=== PATIENT | female | born 1950 | race Caucasian/White ===

== ENCOUNTER 2019-01-12 17:18 | Emergency (ER) | payer OTHER ==
[2019-01-12 17:47] LABS: Blood, Urine Negative (Negative); Protein, Urine (Dipstick) 30 mg/dL (Neg-Trace)
[2019-01-12 17:48] LABS: Clarity Clear (Clear); Glucose, Urine (Dipstick) Unable to Interpret mg/dL (Negative); Leukocyte Trace Leu/uL (Negative); Nitrite Unable to Interpret (Negative)
[2019-01-12 17:49] LABS: Bilirubin Unable to Interpret (Negative); Urobilinogen UNABLE TO INTERPRET mg/dL (Less than 2)
[2019-01-12 17:50] LABS: Pregnancy Test - Urine (BHCG) Negative (Negative); Pregu Control Background? CLEAR/WHITE (CLR/WHITE); Pregu Control Bar Appear? YES (CONTROL BAR); Specific Gravity 1.024 (1.002-1.036)
[2019-01-12 17:59] LABS: Bacteria/HPF None Seen HPF (None Seen); RBC/HPF 0-3 HPF (0-3); WBC/HPF 0-3 HPF (0-3)
[2019-01-12 18:00] LABS: Calcium Oxalate Crystals Rare HPF (None Seen)
== END 2019-01-12 18:31 | disposition home or self-care (01) ==
LOC: ERS 17:18
DX: N39.0 Urinary tract infection, site not specified (principal); M19.90 Unspecified osteoarthritis, unspecified site; Z79.899 Other long term (current) drug therapy
CPT/HCPCS: 81003; 81015; 81025; 99283

== ENCOUNTER 2022-05-19 05:34 | Inpatient (IN) | payer OTHER ==
[2022-05-19 06:08] LABS: #Eosinphils 0.1 thou/uL (0.0-0.7); #Lymphocytes 0.4 thou/uL (1.20-3.40); #Monocytes 0.2 thou/uL (0.11-0.59); #Neutrophils 2.3 thou/uL (1.40-6.50); %Eosinophils 2.4 % (0.0-10.0); %Lymphocytes 14.3 % (21.0-51.0); %Neutrophils 76.3 % (42.0-75.0); Hemoglobin 14.2 g/dL (12.0-16.0); Mean Corpuscular HGB CONC 32.4 g/dL (32.0-36.0); Mean Corpuscular Hemoglobin 32.9 pg (27.0-31.0); Mean Platelet Volume 7.5 fL (7.4-10.4); Platelet Count 282 10x3/uL (130-400); RBC Distribution Width 13.7 % (11.5-14.5); Red Blood Cell (RBC) Count 4.31 mill/uL (4.20-5.40)
[2022-05-19] MEDS ORDERED: FENTANYL 50 MCG/ML 1 ML VIAL ONE ×4 (06:08→11:53)
[2022-05-19] MEDS ORDERED: Piperacillin/Tazobactam 3.375 GM VIAL ONE (06:08)
[2022-05-19] MEDS ORDERED: Vancomycin 1 GM/200 ML (FROZEN) BAG ONE (06:08)
[2022-05-19 06:19] LABS: INR-International Normal Ratio 0.9; Prothrombin Time 12.9 sec (12.0-14.7)
[2022-05-19 06:20] LABS: PTT 26.4 sec (22.9-36.1)
[2022-05-19] MEDS ORDERED: HYDROmorphone 0.5 MG/0.5 ML SYRINGE ONE (06:51)
[2022-05-19 07:03] LABS: ALT (SGPT) 17 U/L (8-55); AST (SGOT) 25 U/L (5-34); Alkaline Phosphatase 80 U/L (40-110); Anion Gap 14 mmol/L (10-20); BUN (Urea Nitrogen) 25 mg/dL (9.8-20.1); Bilirubin, Total 0.6 mg/dL (0.2-1.2); Calc. Creatinine Clearance 0 mL/min (70-130); Calcium 9.5 mg/dL (7.8-10.44); Carbon Dioxide 22 mmol/L (23-31); Chloride 103 mmol/L (98-107); Estimated GFR 64; Globulin 2.3 g/dL (2.4-3.5); Glucose 157 mg/dL (83-110); Lipase 163 U/L (8-78); Potassium 3.9 mmol/L (3.5-5.1); Protein, Total 5.3 g/dL (5.8-8.1); Sodium 135 mmol/L (136-145)
[2022-05-19 08:27] LABS: SARS-CoV-2 NAA Rapid Test Not Detected (NotDetected)
[2022-05-19] MEDS ORDERED: Promethazine HCl 25 MG/ML VIAL IVPB PRN (09:24)
[2022-05-19] MEDS ORDERED: Ondansetron HCl/PF 4 MG/2 ML Vial IVP PRN (09:24)
[2022-05-19] MEDS ORDERED: Promethazine HCl 25 MG/ML VIAL IM PRN ×3 (09:24→12:06)
[2022-05-19] MEDS ORDERED: Fentanyl 250 MCG/5 ML VIAL ONE (09:34)
[2022-05-19] MEDS ORDERED: SUGAMMADEX SODIUM 200 MG/2 ML VIAL ONE (09:35)
[2022-05-19] MEDS ORDERED: PROPOFOL 200 MG/20 ML VIAL ONE (10:00)
[2022-05-19] MEDS ORDERED: Dexamethasone 20 MG/5 ML VIAL ONE (10:00)
[2022-05-19] MEDS ORDERED: NEOSTIGMINE 3 MG/3 ML SYR 3 MG/3 ML SYRINGE ONE (10:00)
[2022-05-19] MEDS ORDERED: Phenylephrine 10 MG/ML VIAL ONE (10:00)
[2022-05-19] MEDS ORDERED: ePHEDrine 50 MG/ML VIAL ONE (10:00)
[2022-05-19] MEDS ORDERED: Succinylcholine Chloride 100 MG/5 ML SYRINGE FS ONE (10:00)
[2022-05-19] MEDS ORDERED: Rocuronium Bromide 10 MG/ML (10ML VIAL) ONE (10:00)
[2022-05-19] MEDS ORDERED: GLYCOPYRROLATE/PF 0.2 MG/ML VIAL ONE (10:00)
[2022-05-19] MEDS ORDERED: Albumin 5% 250 ML ONE (10:09)
[2022-05-19] MEDS ORDERED: FENTANYL 500 MCG/10 ML VIAL 2,000 MCG in Sodium Chloride 0.9% 60 ML IV PRN (11:15)
[2022-05-19] MEDS ORDERED: Zolpidem Tartrate 5 MG TAB PO PRN (11:15)
[2022-05-19] MEDS ORDERED: Ondansetron PF 4 MG/2 ML Vial IVP PRN (11:15)
[2022-05-19] MEDS ORDERED: diphenhydrAMINE 25 MG CAP PO PRN (11:15)
[2022-05-19] MEDS ORDERED: PCA Communication Order-Pharmacy FS SCH (11:15)
[2022-05-19] MEDS ORDERED: diphenhydrAMINE 50 MG/ML VIAL IVP PRN (11:15)
[2022-05-19] MEDS ORDERED: Naloxone HCl 0.4 mg/ml Vial IV PRN (11:15)
[2022-05-19] MEDS ORDERED: diphenhydrAMINE 50 MG/ML VIAL IM PRN (11:15)
[2022-05-19] MEDS ORDERED: Dextrose 5% in Water 1,000 ML IV PRN (12:06)
[2022-05-19] MEDS ORDERED: Piperacillin/Tazobactam 3.375 GM in Sodium Chloride 0.9% 100 ML IVPB SCH (12:06)
[2022-05-19] MEDS ORDERED: Dextrose 50% Abboject 50 ML SYRINGE SLOW IVP PRN (12:06)
[2022-05-19] MEDS: D5 1/2 NS w/20 mEq KCL 1,000 ML IV SCH ×2 (14:05→20:39)
[2022-05-19] MEDS: Fluconazole In NaCl,Iso-Osm 200 MG in Premix Bag 1 BAG IVPB SCH (14:05)
[2022-05-19 14:08] VITALS: BMI 17.4
[2022-05-19] MEDS ORDERED: Iopamidol-370 76% 500 ML 1 ML ONE (15:00)
[2022-05-19] MEDS: Piperacillin/Tazobactam 3.375 GM in Sodium Chloride 0.9% 100 ML IVPB SCH ×2 (15:06→21:34)
[2022-05-19] MEDS ORDERED: Sodium Chloride 0.9% 1,000 ML IV SCH (19:00)
[2022-05-19] MEDS: Pantoprazole 40 MG VIAL IVP SCH (20:39)
[2022-05-20] MEDS: Piperacillin/Tazobactam 3.375 GM in Sodium Chloride 0.9% 100 ML IVPB SCH ×3 (05:24→21:24)
[2022-05-20] MEDS: D5 1/2 NS w/20 mEq KCL 1,000 ML IV SCH (05:24)
[2022-05-20] MEDS: Pantoprazole 40 MG VIAL IVP SCH ×2 (09:15→21:25)
[2022-05-20] MEDS: Enoxaparin Sodium 30 MG/0.3 ML SYRINGE SC SCH (09:15)
[2022-05-20 09:50] LABS: Anion Gap 10 mmol/L (10-20); BUN (Urea Nitrogen) 26 mg/dL (9.8-20.1); Calc. Creatinine Clearance 30 mL/min (70-130); Calcium 9.3 mg/dL (7.8-10.44); Carbon Dioxide 19 mmol/L (23-31); Chloride 111 mmol/L (98-107); Estimated GFR 54; Glucose 83 mg/dL (83-110); Potassium 5.2 mmol/L (3.5-5.1); Sodium 135 mmol/L (136-145)
[2022-05-20 10:52] LABS: Hemoglobin 10.6 g/dL (12.0-16.0); Mean Corpuscular Hemoglobin 33.8 pg (27.0-31.0); Red Blood Cell (RBC) Count 3.14 mill/uL (4.20-5.40); White Blood Cell (WBC) Count 10.3 10x3/uL (4.8-10.8)
[2022-05-20 11:28] LABS: Band 40 % (5-11); Burr Cells SLIGHT = 2-5 cells (100X) (0-1/hpf); Lymphocytes 9 % (21-51); MDiff Complete? YES; Macrocytosis MODERATE=16-30 cells (100X) (0-5/hpf); Mean Corpuscular HGB CONC 32.2 g/dL (32.0-36.0); Mean Platelet Volume 7.6 fL (7.4-10.4); Metamyelocyte 1 % (0-0); Monocytes 7 % (0-10); Neutrophil 43 % (42-75); Ovalocytes SLIGHT = 2-5 cells (100X) (0-1/hpf); Platelet Count 210 10x3/uL (130-400); Platelet Morphology Comment Appears Adequate; RBC Distribution Width 13.9 % (11.5-14.5); Toxic Granulation SLIGHT; Vacuoles SLIGHT
[2022-05-20] MEDS ORDERED: Sodium Chloride 0.9% 1,000 ML IV SCH (12:15)
[2022-05-20] MEDS ORDERED: Lactated Ringer's 1,000 ML IV SCH (13:30)
[2022-05-20] MEDS: Fluconazole In NaCl,Iso-Osm 200 MG in Premix Bag 1 BAG IVPB SCH (14:53)
[2022-05-20] MEDS: Dextrose 5 %-0.45 % NaCl 1,000 ML IV SCH (21:26)
[2022-05-21] MEDS: Piperacillin/Tazobactam 3.375 GM in Sodium Chloride 0.9% 100 ML IVPB SCH ×3 (04:58→22:53)
[2022-05-21 06:00] LABS: #Lymphocytes 0.4 thou/uL (1.20-3.40); #Monocytes 0.5 thou/uL (0.11-0.59); #Neutrophils 10.2 thou/uL (1.40-6.50); %Basophils 0.1 % (0.0-1.0); %Eosinophils 0.3 % (0.0-10.0); %Lymphocytes 3.8 % (21.0-51.0); %Monocytes 4.3 % (0.0-10.0); %Neutrophils 91.5 % (42.0-75.0); Hemoglobin 10.9 g/dL (12.0-16.0); Mean Corpuscular Hemoglobin 33.4 pg (27.0-31.0); Mean Platelet Volume 7.6 fL (7.4-10.4); Platelet Count 220 10x3/uL (130-400); RBC Distribution Width 13.5 % (11.5-14.5); Red Blood Cell (RBC) Count 3.25 mill/uL (4.20-5.40); White Blood Cell (WBC) Count 11.1 10x3/uL (4.8-10.8)
[2022-05-21 06:26] LABS: Anion Gap 11 mmol/L (10-20); Calc. Creatinine Clearance 42 mL/min (70-130); Calcium 9.8 mg/dL (7.8-10.44); Carbon Dioxide 19 mmol/L (23-31); Chloride 112 mmol/L (98-107); Estimated GFR 80; Glucose 79 mg/dL (83-110); Potassium 4.5 mmol/L (3.5-5.1); Sodium 137 mmol/L (136-145)
[2022-05-21] MEDS: Pantoprazole 40 MG VIAL IVP SCH ×2 (08:19→22:53)
[2022-05-21] MEDS: Dextrose 5 %-0.45 % NaCl 1,000 ML IV SCH (08:19)
[2022-05-21 08:22] LABS: BUN (Urea Nitrogen) 19 mg/dL (9.8-20.1)
[2022-05-21] MEDS: Enoxaparin Sodium 30 MG/0.3 ML SYRINGE SC SCH (08:25)
[2022-05-21] MEDS: Fluconazole In NaCl,Iso-Osm 200 MG in Premix Bag 1 BAG IVPB SCH (14:00)
[2022-05-21] MEDS ORDERED: GASTROGRAFIN 30 ML BOT ONE (15:09)
[2022-05-22] MEDS: Dextrose 5 %-0.45 % NaCl 1,000 ML IV SCH ×2 (04:56→11:21)
[2022-05-22] MEDS: Piperacillin/Tazobactam 3.375 GM in Sodium Chloride 0.9% 100 ML IVPB SCH ×3 (04:57→20:16)
[2022-05-22 06:14] LABS: #Eosinphils 0.1 thou/uL (0.0-0.7); #Lymphocytes 0.5 thou/uL (1.20-3.40); #Monocytes 0.3 thou/uL (0.11-0.59); #Neutrophils 11.2 thou/uL (1.40-6.50); %Eosinophils 0.7 % (0.0-10.0); %Monocytes 2.1 % (0.0-10.0); %Neutrophils 93.2 % (42.0-75.0); Hemoglobin 10.9 g/dL (12.0-16.0); Mean Corpuscular HGB CONC 32.3 g/dL (32.0-36.0); Mean Corpuscular Hemoglobin 32.9 pg (27.0-31.0); Mean Platelet Volume 7.7 fL (7.4-10.4); Platelet Count 232 10x3/uL (130-400); RBC Distribution Width 13.4 % (11.5-14.5); Red Blood Cell (RBC) Count 3.32 mill/uL (4.20-5.40); White Blood Cell (WBC) Count 12.1 10x3/uL (4.8-10.8)
[2022-05-22 06:39] LABS: Anion Gap 10 mmol/L (10-20); BUN (Urea Nitrogen) 10 mg/dL (9.8-20.1); Calc. Creatinine Clearance 51 mL/min (70-130); Calcium 9.6 mg/dL (7.8-10.44); Carbon Dioxide 22 mmol/L (23-31); Chloride 110 mmol/L (98-107); Estimated GFR 94; Glucose 84 mg/dL (83-110); Potassium 3.9 mmol/L (3.5-5.1); Sodium 138 mmol/L (136-145)
[2022-05-22] MEDS: Enoxaparin Sodium 30 MG/0.3 ML SYRINGE SC SCH (09:59)
[2022-05-22] MEDS: Pantoprazole 40 MG VIAL IVP SCH ×2 (10:00→20:17)
[2022-05-22] MEDS: Fluconazole In NaCl,Iso-Osm 200 MG in Premix Bag 1 BAG IVPB SCH (14:27)
[2022-05-22] MEDS: hydrALAZINE 20 MG/ML VIAL SLOW IVP PRN (23:37)
[2022-05-23] MEDS ORDERED: Pramipexole Di-HCl 0.125 MG TAB PO SCH (02:15)
[2022-05-23] MEDS: Dextrose 5 %-0.45 % NaCl 1,000 ML IV SCH (02:25)
[2022-05-23] MEDS: Piperacillin/Tazobactam 3.375 GM in Sodium Chloride 0.9% 100 ML IVPB SCH ×3 (05:05→21:18)
[2022-05-23] MEDS: hydrALAZINE 20 MG/ML VIAL SLOW IVP PRN ×2 (06:48→16:44)
[2022-05-23] MEDS: Pantoprazole 40 MG VIAL IVP SCH ×2 (08:48→20:21)
[2022-05-23] MEDS: Enoxaparin Sodium 30 MG/0.3 ML SYRINGE SC SCH (08:48)
[2022-05-23 09:27] LABS: Anion Gap 13 mmol/L (10-20); BUN (Urea Nitrogen) 7 mg/dL (9.8-20.1); Calc. Creatinine Clearance 55 mL/min (70-130); Calcium 9.6 mg/dL (7.8-10.44); Carbon Dioxide 21 mmol/L (23-31); Chloride 104 mmol/L (98-107); Estimated GFR 96; Glucose 119 mg/dL (83-110); Potassium 3.4 mmol/L (3.5-5.1); Sodium 135 mmol/L (136-145)
[2022-05-23 09:36] LABS: Hemoglobin 12.3 g/dL (12.0-16.0); Mean Corpuscular HGB CONC 31.6 g/dL (32.0-36.0); Mean Corpuscular Hemoglobin 32.3 pg (27.0-31.0); Mean Platelet Volume 7.9 fL (7.4-10.4); Platelet Count 267 10x3/uL (130-400); RBC Distribution Width 13.4 % (11.5-14.5); Red Blood Cell (RBC) Count 3.83 mill/uL (4.20-5.40); White Blood Cell (WBC) Count 7.1 10x3/uL (4.8-10.8)
[2022-05-23] MEDS ORDERED: Dextrose 5 %-0.45 % NaCl 1,000 ML IV SCH (09:38)
[2022-05-23] MEDS ORDERED: FENTANYL 50 MCG/ML 1 ML VIAL SLOW IVP PRN (09:49)
[2022-05-23 11:01] LABS: Band 7 % (5-11); Eosinophils 1 % (0-10); Lymphocytes 4 % (21-51); MDiff Complete? YES; Monocytes 7 % (0-10); Neutrophil 81 % (42-75); RBC Morphology Normal
[2022-05-23] MEDS: Fluconazole In NaCl,Iso-Osm 200 MG in Premix Bag 1 BAG IVPB SCH (14:15)
[2022-05-23] MEDS ORDERED: Potassium Chloride 20 MEQ in Premix Bag 1 BAG IVPB SCH (14:30)
[2022-05-23] MEDS ORDERED: Valsartan 80 MG TAB PO SCH (14:30)
[2022-05-23] MEDS: HYDROcodone/Acetaminophen 7.5/325 mg Tablet PO PRN (14:38)
[2022-05-23] MEDS: Pramipexole Di-HCl 0.125 MG TAB PO SCH (20:21)
[2022-05-24] MEDS: hydrALAZINE 20 MG/ML VIAL SLOW IVP PRN (01:17)
[2022-05-24] MEDS: Levothyroxine Sodium 75 MCG TAB PO SCH (05:49)
[2022-05-24] MEDS: Piperacillin/Tazobactam 3.375 GM in Sodium Chloride 0.9% 100 ML IVPB SCH ×3 (05:49→22:34)
[2022-05-24 06:42] LABS: Hemoglobin 11.7 g/dL (12.0-16.0); Mean Corpuscular HGB CONC 33.1 g/dL (32.0-36.0); Mean Corpuscular Hemoglobin 33.4 pg (27.0-31.0); Mean Platelet Volume 7.4 fL (7.4-10.4); Platelet Count 267 10x3/uL (130-400); RBC Distribution Width 13.4 % (11.5-14.5); Red Blood Cell (RBC) Count 3.49 mill/uL (4.20-5.40); White Blood Cell (WBC) Count 6.6 10x3/uL (4.8-10.8)
[2022-05-24 06:55] LABS: Anion Gap 11 mmol/L (10-20); BUN (Urea Nitrogen) 8 mg/dL (9.8-20.1); Calc. Creatinine Clearance 54 mL/min (70-130); Calcium 9.4 mg/dL (7.8-10.44); Carbon Dioxide 26 mmol/L (23-31); Chloride 103 mmol/L (98-107); Estimated GFR 96; Glucose 86 mg/dL (83-110); Potassium 3.8 mmol/L (3.5-5.1); Sodium 136 mmol/L (136-145)
[2022-05-24] MEDS: Enoxaparin Sodium 30 MG/0.3 ML SYRINGE SC SCH (08:21)
[2022-05-24] MEDS: Atenolol 25 MG TAB PO SCH (08:21)
[2022-05-24] MEDS: Pantoprazole 40 MG VIAL IVP SCH ×2 (08:21→22:34)
[2022-05-24] MEDS ORDERED: Valsartan 80 MG TAB PO SCH ×2 (09:00)
[2022-05-24 10:19] LABS: Band 11 % (5-11); Eosinophils 3 % (0-10); Lymphocytes 7 % (21-51); MDiff Complete? YES; Metamyelocyte 1 % (0-0); Monocytes 5 % (0-10); Myelocyte 1 % (0-0); Neutrophil 72 % (42-75); Platelet Morphology Comment Appears Adequate; Polychromasia SLIGHT = 2-3 cells (100X) (0-2/hpf)
[2022-05-24] MEDS: HYDROcodone/Acetaminophen 7.5/325 mg Tablet PO PRN ×2 (11:33→22:29)
[2022-05-24] MEDS: Fluconazole In NaCl,Iso-Osm 200 MG in Premix Bag 1 BAG IVPB SCH (13:40)
[2022-05-24] MEDS ORDERED: Oxybutynin 5 MG TAB PO SCH (21:00)
[2022-05-24] MEDS: Oxybutynin 5 MG TAB PO SCH (22:29)
[2022-05-24] MEDS: Pramipexole Di-HCl 0.125 MG TAB PO SCH (22:29)
[2022-05-25 06:04] LABS: Mean Corpuscular HGB CONC 33.1 g/dL (32.0-36.0); Mean Corpuscular Hemoglobin 33.1 pg (27.0-31.0); Mean Platelet Volume 7.6 fL (7.4-10.4); Platelet Count 275 10x3/uL (130-400); RBC Distribution Width 13.3 % (11.5-14.5); Red Blood Cell (RBC) Count 3.31 mill/uL (4.20-5.40); White Blood Cell (WBC) Count 6.8 10x3/uL (4.8-10.8)
[2022-05-25] MEDS: Piperacillin/Tazobactam 3.375 GM in Sodium Chloride 0.9% 100 ML IVPB SCH ×3 (06:18→21:29)
[2022-05-25] MEDS: Levothyroxine Sodium 75 MCG TAB PO SCH (06:19)
[2022-05-25 06:21] LABS: Anion Gap 13 mmol/L (10-20); BUN (Urea Nitrogen) 11 mg/dL (9.8-20.1); Calc. Creatinine Clearance 54 mL/min (70-130); Calcium 9.5 mg/dL (7.8-10.44); Carbon Dioxide 25 mmol/L (23-31); Chloride 103 mmol/L (98-107); Estimated GFR 96; Glucose 79 mg/dL (83-110); Potassium 3.9 mmol/L (3.5-5.1); Sodium 137 mmol/L (136-145)
[2022-05-25 06:28] LABS: Band 9 % (5-11); Eosinophils 2 % (0-10); Lymphocytes 9 % (21-51); MDiff Complete? YES; Monocytes 9 % (0-10); Myelocyte 2 % (0-0); Neutrophil 69 % (42-75)
[2022-05-25] MEDS: Atenolol 25 MG TAB PO SCH (08:55)
[2022-05-25] MEDS: Valsartan 80 MG TAB PO SCH (08:55)
[2022-05-25] MEDS: Enoxaparin Sodium 30 MG/0.3 ML SYRINGE SC SCH (08:56)
[2022-05-25] MEDS: Pantoprazole 40 MG VIAL IVP SCH ×2 (08:57→21:30)
[2022-05-25] MEDS: Oxybutynin 5 MG TAB PO SCH ×3 (08:58→21:30)
[2022-05-25] MEDS: HYDROcodone/Acetaminophen 7.5/325 mg Tablet PO PRN ×2 (12:26→21:32)
[2022-05-25] MEDS: Fluconazole In NaCl,Iso-Osm 200 MG in Premix Bag 1 BAG IVPB SCH (15:07)
[2022-05-25] MEDS: Calcium Carbonate 600 MG + Vit D TAB PO SCH (17:26)
[2022-05-25] MEDS: Amlodipine 5 MG TAB PO SCH (21:30)
[2022-05-25] MEDS: Pramipexole Di-HCl 0.125 MG TAB PO SCH (21:33)
[2022-05-26] MEDS: Piperacillin/Tazobactam 3.375 GM in Sodium Chloride 0.9% 100 ML IVPB SCH ×3 (05:38→21:08)
[2022-05-26] MEDS: Levothyroxine Sodium 75 MCG TAB PO SCH (05:39)
[2022-05-26] MEDS: hydrALAZINE 20 MG/ML VIAL SLOW IVP PRN (05:53)
[2022-05-26] MEDS: HYDROcodone/Acetaminophen 7.5/325 mg Tablet PO PRN ×3 (06:55→21:27)
[2022-05-26 07:33] LABS: #Eosinphils 0.2 thou/uL (0.0-0.7); #Lymphocytes 0.5 thou/uL (1.20-3.40); #Monocytes 0.6 thou/uL (0.11-0.59); #Neutrophils 4.7 thou/uL (1.40-6.50); %Basophils 0.1 % (0.0-1.0); %Eosinophils 2.8 % (0.0-10.0); %Lymphocytes 7.7 % (21.0-51.0); %Monocytes 9.7 % (0.0-10.0); %Neutrophils 79.6 % (42.0-75.0); Hemoglobin 11.1 g/dL (12.0-16.0); Mean Corpuscular HGB CONC 32.5 g/dL (32.0-36.0); Mean Corpuscular Hemoglobin 32.7 pg (27.0-31.0); Mean Platelet Volume 7.2 fL (7.4-10.4); Platelet Count 291 10x3/uL (130-400); RBC Distribution Width 13.5 % (11.5-14.5); White Blood Cell (WBC) Count 5.9 10x3/uL (4.8-10.8)
[2022-05-26 07:39] LABS: Anion Gap 13 mmol/L (10-20); BUN (Urea Nitrogen) 11 mg/dL (9.8-20.1); Calc. Creatinine Clearance 52 mL/min (70-130); Calcium 9.1 mg/dL (7.8-10.44); Carbon Dioxide 23 mmol/L (23-31); Chloride 102 mmol/L (98-107); Estimated GFR 95; Glucose 90 mg/dL (83-110); Sodium 134 mmol/L (136-145)
[2022-05-26] MEDS: Aspirin 81 mg Enteric Coated Tablet PO SCH (08:20)
[2022-05-26] MEDS: Enoxaparin Sodium 30 MG/0.3 ML SYRINGE SC SCH (08:20)
[2022-05-26] MEDS: Valsartan 80 MG TAB PO SCH (08:20)
[2022-05-26] MEDS: Calcium Carbonate 600 MG + Vit D TAB PO SCH ×2 (08:20→16:08)
[2022-05-26] MEDS: Atenolol 25 MG TAB PO SCH (08:20)
[2022-05-26] MEDS: Pantoprazole 40 MG VIAL IVP SCH ×2 (08:20→21:08)
[2022-05-26] MEDS: Fluconazole In NaCl,Iso-Osm 200 MG in Premix Bag 1 BAG IVPB SCH (13:29)
[2022-05-26] MEDS: Amlodipine 5 MG TAB PO SCH (21:09)
[2022-05-26] MEDS: Pramipexole Di-HCl 0.125 MG TAB PO SCH (21:09)
[2022-05-26] MEDS: Oxybutynin 5 MG TAB PO SCH (21:10)
[2022-05-27] MEDS: Levothyroxine Sodium 75 MCG TAB PO SCH (05:29)
[2022-05-27] MEDS: Piperacillin/Tazobactam 3.375 GM in Sodium Chloride 0.9% 100 ML IVPB SCH (05:29)
[2022-05-27 06:23] LABS: Hemoglobin 10.9 g/dL (12.0-16.0); Mean Corpuscular HGB CONC 32.2 g/dL (32.0-36.0); Mean Corpuscular Hemoglobin 32.5 pg (27.0-31.0); Mean Platelet Volume 7.5 fL (7.4-10.4); Platelet Count 287 10x3/uL (130-400); RBC Distribution Width 13.5 % (11.5-14.5); Red Blood Cell (RBC) Count 3.36 mill/uL (4.20-5.40); White Blood Cell (WBC) Count 6.8 10x3/uL (4.8-10.8)
[2022-05-27 06:48] LABS: Anion Gap 12 mmol/L (10-20); BUN (Urea Nitrogen) 12 mg/dL (9.8-20.1); Calc. Creatinine Clearance 51 mL/min (70-130); Calcium 9.4 mg/dL (7.8-10.44); Carbon Dioxide 23 mmol/L (23-31); Chloride 103 mmol/L (98-107); Estimated GFR 94; Glucose 77 mg/dL (83-110); Potassium 4.4 mmol/L (3.5-5.1); Sodium 134 mmol/L (136-145)
[2022-05-27 08:13] LABS: Band 11 % (5-11); Eosinophils 2 % (0-10); Lymphocytes 8 % (21-51); MDiff Complete? YES; Metamyelocyte 1 % (0-0); Monocytes 12 % (0-10); Myelocyte 1 % (0-0); Neutrophil 65 % (42-75); Platelet Morphology Comment Appears Adequate; Polychromasia SLIGHT = 2-3 cells (100X) (0-2/hpf)
[2022-05-27] MEDS: Atenolol 25 MG TAB PO SCH (08:54)
[2022-05-27] MEDS: Valsartan 80 MG TAB PO SCH (08:54)
[2022-05-27] MEDS: Calcium Carbonate 600 MG + Vit D TAB PO SCH ×2 (08:54→16:46)
[2022-05-27] MEDS: Aspirin 81 mg Enteric Coated Tablet PO SCH (08:54)
[2022-05-27] MEDS: Enoxaparin Sodium 30 MG/0.3 ML SYRINGE SC SCH (08:54)
[2022-05-27] MEDS ORDERED: traMADol HCl 50 MG TAB PO PRN (09:21)
[2022-05-27] MEDS: Acetaminophen 500 MG TAB PO SCH ×3 (11:39→23:17)
[2022-05-27] MEDS: traMADol HCl 50 MG TAB PO SCH ×3 (11:39→23:17)
[2022-05-27] MEDS: hydrALAZINE 20 MG/ML VIAL SLOW IVP PRN (16:46)
[2022-05-27] MEDS: Pramipexole Di-HCl 0.125 MG TAB PO SCH (20:45)
[2022-05-27] MEDS: Oxybutynin 5 MG TAB PO SCH (20:45)
[2022-05-27] MEDS: Amlodipine 5 MG TAB PO SCH (20:45)
[2022-05-28] MEDS: Levothyroxine Sodium 75 MCG TAB PO SCH (05:21)
[2022-05-28] MEDS: traMADol HCl 50 MG TAB PO SCH ×4 (05:21→23:31)
[2022-05-28] MEDS: Acetaminophen 500 MG TAB PO SCH ×4 (05:21→23:31)
[2022-05-28 05:38] LABS: #Eosinphils 0.2 thou/uL (0.0-0.7); #Lymphocytes 0.7 thou/uL (1.20-3.40); #Monocytes 0.6 thou/uL (0.11-0.59); #Neutrophils 4.5 thou/uL (1.40-6.50); %Basophils 0.4 % (0.0-1.0); %Eosinophils 3.4 % (0.0-10.0); %Monocytes 10.3 % (0.0-10.0); Hemoglobin 10.1 g/dL (12.0-16.0); Mean Corpuscular HGB CONC 32.9 g/dL (32.0-36.0); Mean Corpuscular Hemoglobin 33.4 pg (27.0-31.0); Mean Platelet Volume 7.3 fL (7.4-10.4); Platelet Count 323 10x3/uL (130-400); RBC Distribution Width 13.4 % (11.5-14.5); Red Blood Cell (RBC) Count 3.03 mill/uL (4.20-5.40); White Blood Cell (WBC) Count 6.1 10x3/uL (4.8-10.8)
[2022-05-28 05:54] LABS: Anion Gap 10 mmol/L (10-20); BUN (Urea Nitrogen) 17 mg/dL (9.8-20.1); Calc. Creatinine Clearance 51 mL/min (70-130); Calcium 9.4 mg/dL (7.8-10.44); Carbon Dioxide 29 mmol/L (23-31); Chloride 103 mmol/L (98-107); Estimated GFR 94; Glucose 91 mg/dL (83-110); Potassium 4.6 mmol/L (3.5-5.1); Sodium 137 mmol/L (136-145)
[2022-05-28] MEDS: Calcium Carbonate 600 MG + Vit D TAB PO SCH ×2 (08:52→17:23)
[2022-05-28] MEDS: Enoxaparin Sodium 30 MG/0.3 ML SYRINGE SC SCH (08:52)
[2022-05-28] MEDS: Atenolol 25 MG TAB PO SCH (08:53)
[2022-05-28] MEDS: Aspirin 81 mg Enteric Coated Tablet PO SCH (08:53)
[2022-05-28] MEDS: Valsartan 80 MG TAB PO SCH (08:53)
[2022-05-28] MEDS: Amlodipine 5 MG TAB PO SCH (20:35)
[2022-05-28] MEDS: Pramipexole Di-HCl 0.125 MG TAB PO SCH (20:35)
[2022-05-28] MEDS: Oxybutynin 5 MG TAB PO SCH (20:35)
[2022-05-29] MEDS: traMADol HCl 50 MG TAB PO SCH ×3 (05:21→17:20)
[2022-05-29] MEDS: Acetaminophen 500 MG TAB PO SCH ×3 (05:21→17:19)
[2022-05-29] MEDS: Levothyroxine Sodium 75 MCG TAB PO SCH (05:22)
[2022-05-29 05:45] LABS: #Eosinphils 0.1 thou/uL (0.0-0.7); #Lymphocytes 0.7 thou/uL (1.20-3.40); #Monocytes 0.6 thou/uL (0.11-0.59); #Neutrophils 7.7 thou/uL (1.40-6.50); %Basophils 0.1 % (0.0-1.0); %Eosinophils 1.1 % (0.0-10.0); %Lymphocytes 8.2 % (21.0-51.0); %Monocytes 6.2 % (0.0-10.0); %Neutrophils 84.4 % (42.0-75.0); Hemoglobin 9.9 g/dL (12.0-16.0); Mean Corpuscular HGB CONC 33.2 g/dL (32.0-36.0); Mean Corpuscular Hemoglobin 33.9 pg (27.0-31.0); Mean Platelet Volume 7.1 fL (7.4-10.4); Platelet Count 367 10x3/uL (130-400); RBC Distribution Width 13.3 % (11.5-14.5); Red Blood Cell (RBC) Count 2.93 mill/uL (4.20-5.40); White Blood Cell (WBC) Count 9.1 10x3/uL (4.8-10.8)
[2022-05-29 06:12] LABS: Anion Gap 13 mmol/L (10-20); BUN (Urea Nitrogen) 35 mg/dL (9.8-20.1); Calc. Creatinine Clearance 52 mL/min (70-130); Calcium 9.5 mg/dL (7.8-10.44); Carbon Dioxide 24 mmol/L (23-31); Chloride 103 mmol/L (98-107); Estimated GFR 95; Glucose 95 mg/dL (83-110); Potassium 4.6 mmol/L (3.5-5.1); Sodium 135 mmol/L (136-145)
[2022-05-29] MEDS: Atenolol 25 MG TAB PO SCH (08:53)
[2022-05-29] MEDS: Aspirin 81 mg Enteric Coated Tablet PO SCH (08:59)
[2022-05-29] MEDS: Enoxaparin Sodium 30 MG/0.3 ML SYRINGE SC SCH (08:59)
[2022-05-29] MEDS: Calcium Carbonate 600 MG + Vit D TAB PO SCH ×2 (08:59→17:20)
[2022-05-29] MEDS ORDERED: Polyethylene Glycol 3350 17 GM Packet PO SCH (09:00)
[2022-05-29] MEDS ORDERED: Sodium Chloride 0.9% 1,000 ML IV SCH ×2 (10:30→20:00)
[2022-05-29] MEDS ORDERED: GASTROGRAFIN 30 ML BOT ONE (12:02)
[2022-05-29] MEDS ORDERED: Iopamidol-370 76% 500 ML 1 ML ONE (12:02)
[2022-05-29] MEDS: Valsartan 80 MG TAB PO SCH (14:12)
[2022-05-29 18:22] LABS: #Eosinphils 0.1 thou/uL (0.0-0.7); #Lymphocytes 0.6 thou/uL (1.20-3.40); #Monocytes 0.8 thou/uL (0.11-0.59); #Neutrophils 16.8 thou/uL (1.40-6.50); %Basophils 0.2 % (0.0-1.0); %Eosinophils 0.4 % (0.0-10.0); %Lymphocytes 3.2 % (21.0-51.0); %Monocytes 4.6 % (0.0-10.0); %Neutrophils 91.6 % (42.0-75.0); Hemoglobin 8.8 g/dL (12.0-16.0); Mean Corpuscular HGB CONC 32.1 g/dL (32.0-36.0); Mean Corpuscular Hemoglobin 32.6 pg (27.0-31.0); Mean Platelet Volume 7.4 fL (7.4-10.4); Platelet Count 410 10x3/uL (130-400); RBC Distribution Width 13.2 % (11.5-14.5); White Blood Cell (WBC) Count 18.3 10x3/uL (4.8-10.8)
[2022-05-29 18:34] LABS: INR-International Normal Ratio 1.1; PTT 34.3 sec (22.9-36.1); Prothrombin Time 14.2 sec (12.0-14.7)
[2022-05-29 18:55] LABS: Anion Gap 17 mmol/L (10-20); BUN (Urea Nitrogen) 45 mg/dL (9.8-20.1); Calc. Creatinine Clearance 48 mL/min (70-130); Carbon Dioxide 22 mmol/L (23-31); Chloride 102 mmol/L (98-107); Estimated GFR 93; Glucose 137 mg/dL (83-110); Sodium 137 mmol/L (136-145)
[2022-05-29] MEDS ORDERED: Calcium Carbonate 500 MG ChewTAB PO SCH (19:19)
[2022-05-29] MEDS: Amlodipine 5 MG TAB PO SCH (20:07)
[2022-05-29] MEDS: Pramipexole Di-HCl 0.125 MG TAB PO SCH (20:07)
[2022-05-29] MEDS: Oxybutynin 5 MG TAB PO SCH (20:07)
[2022-05-29 20:22] LABS: #Lymphocytes 0.5 thou/uL (1.20-3.40); #Monocytes 0.6 thou/uL (0.11-0.59); #Neutrophils 15.2 thou/uL (1.40-6.50); %Basophils 0.1 % (0.0-1.0); %Eosinophils 0.1 % (0.0-10.0); %Lymphocytes 3.1 % (21.0-51.0); %Monocytes 3.8 % (0.0-10.0); %Neutrophils 92.9 % (42.0-75.0); Hemoglobin 8.1 g/dL (12.0-16.0); Mean Corpuscular HGB CONC 34.2 g/dL (32.0-36.0); Mean Corpuscular Hemoglobin 34.3 pg (27.0-31.0); Mean Platelet Volume 7.4 fL (7.4-10.4); Platelet Count 349 10x3/uL (130-400); RBC Distribution Width 13.2 % (11.5-14.5); Red Blood Cell (RBC) Count 2.37 mill/uL (4.20-5.40); White Blood Cell (WBC) Count 16.3 10x3/uL (4.8-10.8)
[2022-05-29] MEDS: Ascorbic Acid 500 mg Chewable Tablet PO SCH (20:40)
[2022-05-29] MEDS ORDERED: Piperacillin/Tazobactam 3.375 GM in Sodium Chloride 0.9% 100 ML IVPB SCH ×2 (23:00→23:59)
[2022-05-29] MEDS ORDERED: Amino Acids 4.25 %/Dextrose 5% 1,000 ML IV SCH (23:15)
[2022-05-29] MEDS ORDERED: traMADol HCl 50 MG TAB PO SCH (23:59)
[2022-05-30] MEDS: Acetaminophen 500 MG TAB PO SCH ×5 (02:25→23:15)
[2022-05-30] MEDS: Piperacillin/Tazobactam 3.375 GM in Sodium Chloride 0.9% 100 ML IVPB SCH ×3 (03:46→20:44)
[2022-05-30] MEDS ORDERED: Ketorolac Tromethamine 30 MG/ML VIAL IVP SCH (06:15)
[2022-05-30] MEDS ORDERED: Morphine 4 MG/ML VIAL SLOW IVP SCH (06:30)
[2022-05-30] MEDS: Levothyroxine Sodium 75 MCG TAB PO SCH (06:34)
[2022-05-30 07:09] LABS: #Lymphocytes 0.4 thou/uL (1.20-3.40); #Monocytes 0.6 thou/uL (0.11-0.59); #Neutrophils 12.2 thou/uL (1.40-6.50); %Basophils 0.1 % (0.0-1.0); %Eosinophils 0.3 % (0.0-10.0); %Lymphocytes 3.3 % (21.0-51.0); %Monocytes 4.2 % (0.0-10.0); %Neutrophils 92.2 % (42.0-75.0); Mean Corpuscular HGB CONC 32.7 g/dL (32.0-36.0); Mean Corpuscular Hemoglobin 33.1 pg (27.0-31.0); Mean Platelet Volume 7.8 fL (7.4-10.4); Platelet Count 314 10x3/uL (130-400); RBC Distribution Width 13.4 % (11.5-14.5); Red Blood Cell (RBC) Count 2.12 mill/uL (4.20-5.40); White Blood Cell (WBC) Count 13.3 10x3/uL (4.8-10.8)
[2022-05-30 07:27] LABS: Anion Gap 13 mmol/L (10-20); BUN (Urea Nitrogen) 44 mg/dL (9.8-20.1); Calc. Creatinine Clearance 48 mL/min (70-130); Calcium 9.6 mg/dL (7.8-10.44); Carbon Dioxide 21 mmol/L (23-31); Chloride 104 mmol/L (98-107); Estimated GFR 93; Glucose 141 mg/dL (83-110); Potassium 4.1 mmol/L (3.5-5.1); Sodium 134 mmol/L (136-145)
[2022-05-30 07:30] LABS: Phosphorus 2.7 mg/dL (2.3-4.7)
[2022-05-30] MEDS: Pantoprazole 40 MG VIAL IVP SCH ×2 (08:54→20:45)
[2022-05-30] MEDS ORDERED: Sodium Phosphate 30 MMOL in Sodium Chloride 0.9% 250 ML 250 ML IVPB SCH (09:00)
[2022-05-30] MEDS: Ferrous Sulfate 325 MG TAB PO SCH ×2 (10:19→17:23)
[2022-05-30] MEDS: Calcium Carbonate 500 MG ChewTAB PO SCH (10:19)
[2022-05-30] MEDS: Atenolol 25 MG TAB PO SCH (10:19)
[2022-05-30] MEDS: Ascorbic Acid 500 mg Chewable Tablet PO SCH ×2 (10:19→20:45)
[2022-05-30] MEDS: Valsartan 80 MG TAB PO SCH (10:20)
[2022-05-30] MEDS: Morphine 4 MG/ML VIAL SLOW IVP PRN ×2 (10:33→23:14)
[2022-05-30] MEDS: Multivitamins, Adult 10 ML, TRACE ELEMENT CONCENTRATE 1 ML in D15W-AA 5% with Lytes 2,0... IV SCH (15:04)
[2022-05-30] MEDS: Pramipexole Di-HCl 0.125 MG TAB PO SCH (20:45)
[2022-05-30] MEDS: Oxybutynin 5 MG TAB PO SCH (20:46)
[2022-05-30] MEDS: Amlodipine 5 MG TAB PO SCH (20:55)
[2022-05-31] MEDS: Piperacillin/Tazobactam 3.375 GM in Sodium Chloride 0.9% 100 ML IVPB SCH ×3 (05:30→20:43)
[2022-05-31] MEDS: Levothyroxine Sodium 75 MCG TAB PO SCH (05:30)
[2022-05-31] MEDS: Acetaminophen 500 MG TAB PO SCH ×3 (05:30→17:41)
[2022-05-31 06:09] LABS: #Eosinphils 0.2 thou/uL (0.0-0.7); #Lymphocytes 0.5 thou/uL (1.20-3.40); #Monocytes 0.6 thou/uL (0.11-0.59); %Basophils 0.4 % (0.0-1.0); %Eosinophils 2.6 % (0.0-10.0); %Lymphocytes 5.9 % (21.0-51.0); %Monocytes 7.2 % (0.0-10.0); %Neutrophils 83.9 % (42.0-75.0); Hemoglobin 7.3 g/dL (12.0-16.0); Mean Corpuscular HGB CONC 33.6 g/dL (32.0-36.0); Mean Corpuscular Hemoglobin 32.9 pg (27.0-31.0); Mean Corpuscular Volume 97.9 fl (78.0-98.0); Mean Platelet Volume 7.1 fL (7.4-10.4); Platelet Count 300 10x3/uL (130-400); RBC Distribution Width 13.3 % (11.5-14.5); Red Blood Cell (RBC) Count 2.23 mill/uL (4.20-5.40); White Blood Cell (WBC) Count 8.3 10x3/uL (4.8-10.8)
[2022-05-31 06:28] LABS: Anion Gap 9 mmol/L (10-20); BUN (Urea Nitrogen) 31 mg/dL (9.8-20.1); Calc. Creatinine Clearance 57 mL/min (70-130); Calcium 9.4 mg/dL (7.8-10.44); Carbon Dioxide 24 mmol/L (23-31); Chloride 105 mmol/L (98-107); Estimated GFR 97; Glucose 114 mg/dL (83-110); Potassium 3.6 mmol/L (3.5-5.1); Sodium 134 mmol/L (136-145)
[2022-05-31] MEDS ORDERED: Enoxaparin Sodium 30 MG/0.3 ML SYRINGE SC SCH (09:00)
[2022-05-31] MEDS: Atenolol 25 MG TAB PO SCH (10:20)
[2022-05-31] MEDS: Calcium Carbonate 500 MG ChewTAB PO SCH (10:20)
[2022-05-31] MEDS: Ferrous Sulfate 325 MG TAB PO SCH ×2 (10:20→17:41)
[2022-05-31] MEDS: Ascorbic Acid 500 mg Chewable Tablet PO SCH ×2 (10:20→20:44)
[2022-05-31] MEDS: Pantoprazole 40 MG VIAL IVP SCH ×2 (10:21→20:43)
[2022-05-31] MEDS: Valsartan 80 MG TAB PO SCH (10:21)
[2022-05-31] MEDS: hydrALAZINE 20 MG/ML VIAL SLOW IVP PRN (10:23)
[2022-05-31] MEDS ORDERED: Multivitamins, Adult 10 ML, TRACE ELEMENT CONCENTRATE 1 ML in D15W-AA 5% with Lytes 2,0... IV SCH (14:00)
[2022-05-31] MEDS: Morphine 4 MG/ML VIAL SLOW IVP PRN (17:31)
[2022-05-31] MEDS: Ondansetron PF 4 MG/2 ML Vial IVP PRN (17:32)
[2022-05-31] MEDS: Oxybutynin 5 MG TAB PO SCH (20:43)
[2022-05-31] MEDS: Amlodipine 5 MG TAB PO SCH (20:44)
[2022-05-31] MEDS: Pramipexole Di-HCl 0.125 MG TAB PO SCH (20:52)
[2022-06-01] MEDS: Acetaminophen 500 MG TAB PO SCH ×5 (00:06→22:15)
[2022-06-01] MEDS: Piperacillin/Tazobactam 3.375 GM in Sodium Chloride 0.9% 100 ML IVPB SCH ×3 (04:57→20:36)
[2022-06-01] MEDS: Levothyroxine Sodium 75 MCG TAB PO SCH (05:00)
[2022-06-01] MEDS: Ferrous Sulfate 325 MG TAB PO SCH ×2 (10:22→18:15)
[2022-06-01] MEDS: Ascorbic Acid 500 mg Chewable Tablet PO SCH ×2 (10:22→20:36)
[2022-06-01] MEDS: Calcium Carbonate 500 MG ChewTAB PO SCH (10:22)
[2022-06-01] MEDS ORDERED: Lidocaine 1% PF 5 ML VIAL ONE (10:41)
[2022-06-01] MEDS ORDERED: PROPOFOL 200 MG/20 ML VIAL ONE (10:41)
[2022-06-01] MEDS ORDERED: Ondansetron HCl/PF 4 MG/2 ML Vial IVP PRN (11:11)
[2022-06-01] MEDS ORDERED: FENTANYL 50 MCG/ML 1 ML VIAL SLOW IVP PRN (11:11)
[2022-06-01] MEDS: Atenolol 25 MG TAB PO SCH (12:23)
[2022-06-01] MEDS: Pantoprazole 40 MG VIAL IVP SCH ×2 (12:23→20:36)
[2022-06-01] MEDS: Valsartan 80 MG TAB PO SCH (12:23)
[2022-06-01] MEDS: Multivitamins, Adult 10 ML, TRACE ELEMENT CONCENTRATE 1 ML in D15W-AA 5% with Lytes 2,0... IV SCH (14:51)
[2022-06-01] MEDS: Morphine 4 MG/ML VIAL SLOW IVP PRN (14:58)
[2022-06-01] MEDS: Ondansetron PF 4 MG/2 ML Vial IVP PRN (14:59)
[2022-06-01] MEDS: Pramipexole Di-HCl 0.125 MG TAB PO SCH (20:36)
[2022-06-01] MEDS: Amlodipine 5 MG TAB PO SCH (20:36)
[2022-06-01] MEDS: Oxybutynin 5 MG TAB PO SCH (20:36)
[2022-06-02] MEDS: Morphine 4 MG/ML VIAL SLOW IVP PRN ×3 (03:43→23:04)
[2022-06-02] MEDS: Piperacillin/Tazobactam 3.375 GM in Sodium Chloride 0.9% 100 ML IVPB SCH ×3 (03:44→20:32)
[2022-06-02] MEDS: Acetaminophen 500 MG TAB PO SCH ×4 (06:04→23:01)
[2022-06-02] MEDS: Levothyroxine Sodium 75 MCG TAB PO SCH (06:05)
[2022-06-02] MEDS: Atenolol 25 MG TAB PO SCH (09:30)
[2022-06-02] MEDS: Ascorbic Acid 500 mg Chewable Tablet PO SCH ×2 (09:30→20:32)
[2022-06-02] MEDS: Calcium Carbonate 500 MG ChewTAB PO SCH (09:30)
[2022-06-02] MEDS: Ferrous Sulfate 325 MG TAB PO SCH ×2 (09:31→17:51)
[2022-06-02] MEDS: Pantoprazole 40 MG VIAL IVP SCH ×2 (09:31→20:30)
[2022-06-02] MEDS: Valsartan 80 MG TAB PO SCH (09:34)
[2022-06-02] MEDS ORDERED: MD-Gastroview 120 ML BOT ONE (11:48)
[2022-06-02] MEDS ORDERED: Preparation H Ointment 57 gram tube TOP PRN (19:18)
[2022-06-02] MEDS: Amlodipine 5 MG TAB PO SCH (20:31)
[2022-06-02] MEDS: Pramipexole Di-HCl 0.125 MG TAB PO SCH (20:32)
[2022-06-02] MEDS: Oxybutynin 5 MG TAB PO SCH (20:32)
[2022-06-02] MEDS ORDERED: diphenhydrAMINE 12.5 MG/5 ML UDCUP PO SCH (23:30)
[2022-06-02] MEDS: Preparation H Ointment 28 GM TUBE TOP PRN (23:49)
[2022-06-03] MEDS: Piperacillin/Tazobactam 3.375 GM in Sodium Chloride 0.9% 100 ML IVPB SCH (04:56)
[2022-06-03] MEDS: Levothyroxine Sodium 75 MCG TAB PO SCH (05:21)
[2022-06-03] MEDS: Acetaminophen 500 MG TAB PO SCH ×3 (05:21→18:00)
[2022-06-03 07:40] LABS: #Basophils 0.1 thou/uL (0.0-0.2); #Eosinphils 0.2 thou/uL (0.0-0.7); #Lymphocytes 0.8 thou/uL (1.20-3.40); #Monocytes 0.6 thou/uL (0.11-0.59); #Neutrophils 4.1 thou/uL (1.40-6.50); %Basophils 0.9 % (0.0-1.0); %Eosinophils 3.3 % (0.0-10.0); %Lymphocytes 13.4 % (21.0-51.0); %Monocytes 10.6 % (0.0-10.0); %Neutrophils 71.8 % (42.0-75.0); Hemoglobin 7.2 g/dL (12.0-16.0); Mean Corpuscular HGB CONC 32.5 g/dL (32.0-36.0); Mean Corpuscular Hemoglobin 33.1 pg (27.0-31.0); Mean Platelet Volume 7.4 fL (7.4-10.4); Platelet Count 270 10x3/uL (130-400); RBC Distribution Width 14.2 % (11.5-14.5); Red Blood Cell (RBC) Count 2.19 mill/uL (4.20-5.40); White Blood Cell (WBC) Count 5.6 10x3/uL (4.8-10.8)
[2022-06-03 07:54] LABS: ALT (SGPT) 17 U/L (8-55); AST (SGOT) 15 U/L (5-34); Albumin 2.8 g/dL (3.4-4.8); Alkaline Phosphatase 66 U/L (40-110); Anion Gap 11 mmol/L (10-20); BUN (Urea Nitrogen) 17 mg/dL (9.8-20.1); Bilirubin, Total 0.2 mg/dL (0.2-1.2); Calc. Creatinine Clearance 58 mL/min (70-130); Calcium 9.3 mg/dL (7.8-10.44); Carbon Dioxide 21 mmol/L (23-31); Chloride 109 mmol/L (98-107); Estimated GFR 97; Globulin 2.3 g/dL (2.4-3.5); Glucose 78 mg/dL (83-110); Protein, Total 5.1 g/dL (5.8-8.1); Sodium 137 mmol/L (136-145)
[2022-06-03] MEDS: Calcium Carbonate 500 MG ChewTAB PO SCH (10:00)
[2022-06-03] MEDS: Valsartan 80 MG TAB PO SCH (10:01)
[2022-06-03] MEDS: Pantoprazole 40 MG VIAL IVP SCH ×2 (10:02→20:13)
[2022-06-03] MEDS: Atenolol 25 MG TAB PO SCH (10:02)
[2022-06-03] MEDS: Ascorbic Acid 500 mg Chewable Tablet PO SCH ×2 (10:02→20:13)
[2022-06-03] MEDS: Ferrous Sulfate 325 MG TAB PO SCH ×2 (10:02→18:01)
[2022-06-03] MEDS: Morphine 4 MG/ML VIAL SLOW IVP PRN (11:38)
[2022-06-03] MEDS: Oxybutynin 5 MG TAB PO SCH (20:13)
[2022-06-03] MEDS: Pramipexole Di-HCl 0.125 MG TAB PO SCH (20:13)
[2022-06-03] MEDS: Amlodipine 5 MG TAB PO SCH (20:16)
[2022-06-03] MEDS ORDERED: tiZANidine HCl 4 MG TAB PO SCH (22:00)
[2022-06-03] MEDS: Preparation H Ointment 28 GM TUBE TOP PRN (22:18)
[2022-06-04] MEDS: Acetaminophen 500 MG TAB PO SCH ×5 (00:54→23:10)
[2022-06-04 06:24] LABS: ALT (SGPT) 16 U/L (8-55); AST (SGOT) 13 U/L (5-34); Albumin 2.9 g/dL (3.4-4.8); Alkaline Phosphatase 71 U/L (40-110); Anion Gap 9 mmol/L (10-20); BUN (Urea Nitrogen) 13 mg/dL (9.8-20.1); Bilirubin, Total 0.2 mg/dL (0.2-1.2); Calc. Creatinine Clearance 55 mL/min (70-130); Calcium 9.7 mg/dL (7.8-10.44); Carbon Dioxide 25 mmol/L (23-31); Chloride 106 mmol/L (98-107); Estimated GFR 96; Globulin 2.4 g/dL (2.4-3.5); Glucose 85 mg/dL (83-110); Protein, Total 5.3 g/dL (5.8-8.1); Sodium 136 mmol/L (136-145)
[2022-06-04] MEDS: Levothyroxine Sodium 75 MCG TAB PO SCH (06:36)
[2022-06-04] MEDS: Pantoprazole 40 MG VIAL IVP SCH ×2 (08:01→20:26)
[2022-06-04] MEDS: Calcium Carbonate 500 MG ChewTAB PO SCH (08:01)
[2022-06-04] MEDS: Ascorbic Acid 500 mg Chewable Tablet PO SCH ×2 (08:02→20:25)
[2022-06-04] MEDS: Ferrous Sulfate 325 MG TAB PO SCH ×2 (08:02→16:44)
[2022-06-04] MEDS: Valsartan 80 MG TAB PO SCH (08:02)
[2022-06-04] MEDS: Atenolol 25 MG TAB PO SCH (08:02)
[2022-06-04 08:24] LABS: Hemoglobin 7.3 g/dL (12.0-16.0); Mean Corpuscular HGB CONC 35.2 g/dL (32.0-36.0); Mean Corpuscular Hemoglobin 35.2 pg (27.0-31.0); Mean Platelet Volume 6.9 fL (7.4-10.4); Platelet Count 322 10x3/uL (130-400); RBC Distribution Width 14.4 % (11.5-14.5); Red Blood Cell (RBC) Count 2.08 mill/uL (4.20-5.40); White Blood Cell (WBC) Count 5.7 10x3/uL (4.8-10.8)
[2022-06-04 08:25] LABS: Band 17 % (5-11); Eosinophils 2 % (0-10); Lymphocytes 12 % (21-51); MDiff Complete? YES; Metamyelocyte 1 % (0-0); Monocytes 7 % (0-10); Myelocyte 2 % (0-0); Neutrophil 59 % (42-75)
[2022-06-04] MEDS ORDERED: Pramipexole Di-HCl 0.125 MG TAB PO SCH (09:30)
[2022-06-04] MEDS: traMADol HCl 50 MG TAB PO PRN ×2 (12:05→18:54)
[2022-06-04] MEDS: Morphine 4 MG/ML VIAL SLOW IVP PRN (16:44)
[2022-06-04] MEDS: Oxybutynin 5 MG TAB PO SCH (20:25)
[2022-06-04] MEDS: Pramipexole Di-HCl 0.125 MG TAB PO SCH (20:25)
[2022-06-04] MEDS: Amlodipine 5 MG TAB PO SCH (20:26)
[2022-06-05] MEDS: Acetaminophen 500 MG TAB PO SCH ×4 (05:29→23:23)
[2022-06-05] MEDS: Levothyroxine Sodium 75 MCG TAB PO SCH (05:29)
[2022-06-05] MEDS: Pantoprazole 40 MG VIAL IVP SCH ×2 (08:13→20:31)
[2022-06-05] MEDS: Atenolol 25 MG TAB PO SCH (08:14)
[2022-06-05] MEDS: Ascorbic Acid 500 mg Chewable Tablet PO SCH ×2 (08:14→20:30)
[2022-06-05] MEDS: Calcium Carbonate 500 MG ChewTAB PO SCH (08:14)
[2022-06-05] MEDS: Ferrous Sulfate 325 MG TAB PO SCH ×2 (08:14→17:09)
[2022-06-05] MEDS: Valsartan 80 MG TAB PO SCH (08:14)
[2022-06-05] MEDS: traMADol HCl 50 MG TAB PO PRN ×3 (08:58→23:23)
[2022-06-05] MEDS: Oxybutynin 5 MG TAB PO SCH (20:30)
[2022-06-05] MEDS: Pramipexole Di-HCl 0.125 MG TAB PO SCH (20:30)
[2022-06-05] MEDS: Amlodipine 5 MG TAB PO SCH (20:30)
[2022-06-06] MEDS: Acetaminophen 500 MG TAB PO SCH ×4 (05:34→23:26)
[2022-06-06] MEDS: Levothyroxine Sodium 75 MCG TAB PO SCH (05:34)
[2022-06-06] MEDS: Valsartan 80 MG TAB PO SCH (08:50)
[2022-06-06] MEDS: Atenolol 25 MG TAB PO SCH (08:50)
[2022-06-06] MEDS: Ferrous Sulfate 325 MG TAB PO SCH ×2 (08:50→16:48)
[2022-06-06] MEDS: Ascorbic Acid 500 mg Chewable Tablet PO SCH ×2 (08:50→21:13)
[2022-06-06] MEDS: Calcium Carbonate 500 MG ChewTAB PO SCH (08:50)
[2022-06-06] MEDS: traMADol HCl 50 MG TAB PO PRN ×3 (08:51→23:26)
[2022-06-06] MEDS: Pantoprazole 40 MG VIAL IVP SCH ×2 (08:51→21:12)
[2022-06-06] MEDS: Pramipexole Di-HCl 0.125 MG TAB PO SCH (21:12)
[2022-06-06] MEDS: Oxybutynin 5 MG TAB PO SCH (21:13)
[2022-06-06] MEDS: Amlodipine 5 MG TAB PO SCH (21:15)
[2022-06-07] MEDS: Acetaminophen 500 MG TAB PO SCH ×4 (05:11→23:38)
[2022-06-07] MEDS: Levothyroxine Sodium 75 MCG TAB PO SCH (05:11)
[2022-06-07] MEDS: Calcium Carbonate 500 MG ChewTAB PO SCH (09:47)
[2022-06-07] MEDS: Ascorbic Acid 500 mg Chewable Tablet PO SCH ×2 (09:48→21:21)
[2022-06-07] MEDS: Ferrous Sulfate 325 MG TAB PO SCH ×2 (09:48→18:32)
[2022-06-07] MEDS: Atenolol 25 MG TAB PO SCH (09:48)
[2022-06-07] MEDS: Valsartan 80 MG TAB PO SCH (09:48)
[2022-06-07] MEDS: Pantoprazole 40 MG VIAL IVP SCH ×2 (09:48→21:23)
[2022-06-07] MEDS: traMADol HCl 50 MG TAB PO PRN ×3 (10:05→21:22)
[2022-06-07] MEDS: hydrALAZINE 20 MG/ML VIAL SLOW IVP PRN (15:08)
[2022-06-07] MEDS: Oxybutynin 5 MG TAB PO SCH (21:21)
[2022-06-07] MEDS: Pramipexole Di-HCl 0.125 MG TAB PO SCH (21:22)
[2022-06-07] MEDS: Amlodipine 5 MG TAB PO SCH (21:22)
[2022-06-07] MEDS: Morphine 4 MG/ML VIAL SLOW IVP PRN (23:39)
[2022-06-08] MEDS: Acetaminophen 500 MG TAB PO SCH ×3 (05:44→18:32)
[2022-06-08] MEDS: Levothyroxine Sodium 75 MCG TAB PO SCH (05:44)
[2022-06-08] MEDS: Ferrous Sulfate 325 MG TAB PO SCH ×2 (08:46→18:33)
[2022-06-08] MEDS: Ascorbic Acid 500 mg Chewable Tablet PO SCH ×2 (08:46→21:49)
[2022-06-08] MEDS: Valsartan 80 MG TAB PO SCH (08:47)
[2022-06-08] MEDS: Atenolol 25 MG TAB PO SCH (08:47)
[2022-06-08] MEDS: Pantoprazole 40 MG VIAL IVP SCH ×2 (08:47→21:50)
[2022-06-08] MEDS: Calcium Carbonate 500 MG ChewTAB PO SCH (08:47)
[2022-06-08] MEDS: traMADol HCl 50 MG TAB PO PRN ×2 (12:28→18:33)
[2022-06-08] MEDS: Amlodipine 5 MG TAB PO SCH (21:49)
[2022-06-08] MEDS: Oxybutynin 5 MG TAB PO SCH (21:50)
[2022-06-08] MEDS: Pramipexole Di-HCl 0.125 MG TAB PO SCH (21:50)
[2022-06-08] MEDS ORDERED: Sodium Chloride 0.65% Nasal 44 ML BOT EA NARE PRN (22:19)
[2022-06-09] MEDS: traMADol HCl 50 MG TAB PO PRN ×4 (00:43→23:35)
[2022-06-09] MEDS: Acetaminophen 500 MG TAB PO SCH ×5 (00:43→23:35)
[2022-06-09] MEDS: Levothyroxine Sodium 75 MCG TAB PO SCH (05:48)
[2022-06-09] MEDS: Ferrous Sulfate 325 MG TAB PO SCH ×2 (08:31→18:20)
[2022-06-09] MEDS: Atenolol 25 MG TAB PO SCH (08:31)
[2022-06-09] MEDS: Calcium Carbonate 500 MG ChewTAB PO SCH (08:32)
[2022-06-09] MEDS: Ascorbic Acid 500 mg Chewable Tablet PO SCH ×2 (08:32→20:41)
[2022-06-09] MEDS: Valsartan 80 MG TAB PO SCH (08:32)
[2022-06-09] MEDS: Pantoprazole 40 MG VIAL IVP SCH (08:33)
[2022-06-09] MEDS: Fluticasone Propionate Nasal Spray 16 gm Bottle NASAL SCH (16:55)
[2022-06-09] MEDS: Amlodipine 5 MG TAB PO SCH (20:41)
[2022-06-09] MEDS: Pramipexole Di-HCl 0.125 MG TAB PO SCH (20:41)
[2022-06-09] MEDS: Oxybutynin 5 MG TAB PO SCH (20:41)
[2022-06-10 05:41] LABS: #Eosinphils 0.2 thou/uL (0.0-0.7); #Monocytes 0.5 thou/uL (0.11-0.59); #Neutrophils 4.3 thou/uL (1.40-6.50); %Basophils 0.6 % (0.0-1.0); %Eosinophils 2.7 % (0.0-10.0); %Lymphocytes 16.6 % (21.0-51.0); %Monocytes 8.3 % (0.0-10.0); %Neutrophils 71.9 % (42.0-75.0); Hemoglobin 8.1 g/dL (12.0-16.0); Mean Corpuscular HGB CONC 32.2 g/dL (32.0-36.0); Mean Corpuscular Hemoglobin 32.7 pg (27.0-31.0); Mean Platelet Volume 6.8 fL (7.4-10.4); Platelet Count 303 10x3/uL (130-400); RBC Distribution Width 14.5 % (11.5-14.5); Red Blood Cell (RBC) Count 2.46 mill/uL (4.20-5.40)
[2022-06-10] MEDS: traMADol HCl 50 MG TAB PO PRN ×2 (05:57→12:45)
[2022-06-10] MEDS: Acetaminophen 500 MG TAB PO SCH ×3 (05:57→17:45)
[2022-06-10] MEDS: Levothyroxine Sodium 75 MCG TAB PO SCH (05:58)
[2022-06-10 06:03] LABS: Iron 25 ug/dL (50-170); Iron Binding Capacity, Total 288 mcg/dL (265-497)
[2022-06-10] MEDS: Valsartan 80 MG TAB PO SCH (08:47)
[2022-06-10] MEDS: Ferrous Sulfate 325 MG TAB PO SCH ×2 (08:47→17:44)
[2022-06-10] MEDS: Atenolol 25 MG TAB PO SCH (08:47)
[2022-06-10] MEDS: Ascorbic Acid 500 mg Chewable Tablet PO SCH (08:47)
[2022-06-10] MEDS: Fluticasone Propionate Nasal Spray 16 gm Bottle NASAL SCH (08:48)
[2022-06-10 23:05] VITALS: BP 170/80; TEMP 98.6
== END 2022-06-10 20:45 | disposition home or self-care (01) | DRG 329 ==
LOC: ERS 05:34 → SDC 08:14 → SURG B 13:10
PROVIDERS: ADMIT Hospitalist; ATTEND Hospitalist
PROC: 0DU907Z Supplement Duodenum with Autologous Tissue Substitute, Open Approach (ICD-10-PCS; principal; 2022-05-19)
PROC: 30233N1 Transfusion of Nonautologous Red Blood Cells into Peripheral Vein, Percutaneous Approach (ICD-10-PCS; 2022-05-30)
PROC: 0D9670Z Drainage of Stomach with Drainage Device, Via Natural or Artificial Opening (ICD-10-PCS; 2022-05-30)
PROC: 02HV33Z Insertion of Infusion Device into Superior Vena Cava, Percutaneous Approach (ICD-10-PCS; 2022-05-30)
PROC: B5181ZA Fluoroscopy of Superior Vena Cava using Low Osmolar Contrast, Guidance (ICD-10-PCS; 2022-05-30)
PROC: B548ZZA Ultrasonography of Superior Vena Cava, Guidance (ICD-10-PCS; 2022-05-30)
PROC: 0D798ZZ Dilation of Duodenum, Via Natural or Artificial Opening Endoscopic (ICD-10-PCS; 2022-06-01)
DX: K26.6 Chronic or unspecified duodenal ulcer with both hemorrhage and perforation (principal); E43 Unspecified severe protein-calorie malnutrition; Z20.822 Contact with and (suspected) exposure to COVID-19; J96.01 Acute respiratory failure with hypoxia; K65.8 Other peritonitis; K55.029 Acute infarction of small intestine, extent unspecified; K31.5 Obstruction of duodenum; E87.20 Acidosis, unspecified; R64 Cachexia; K91.89 Other postprocedural complications and disorders of digestive system; D62 Acute posthemorrhagic anemia; Z68.1 Body mass index [BMI] 19.9 or less, adult; Y84.8 Other medical procedures as the cause of abnormal reaction of the patient, or of later complication, without mention of misadventure at the time of the procedure; K44.9 Diaphragmatic hernia without obstruction or gangrene; G89.29 Other chronic pain; M19.90 Unspecified osteoarthritis, unspecified site; G25.81 Restless legs syndrome; N39.41 Urge incontinence; E03.9 Hypothyroidism, unspecified; I25.10 Atherosclerotic heart disease of native coronary artery without angina pectoris; E87.8 Other disorders of electrolyte and fluid balance, not elsewhere classified; N32.81 Overactive bladder; R62.7 Adult failure to thrive; M25.511 Pain in right shoulder; Z87.440 Personal history of urinary (tract) infections; Z98.890 Other specified postprocedural states; Z90.710 Acquired absence of both cervix and uterus; Z95.5 Presence of coronary angioplasty implant and graft
CPT/HCPCS: 36415; 36416; 36430; 36569; 71045; 71275; 74018; 74174; 74177; 74240; 80048; 80053; 82728; 83540; 83550; 83605; 83690; 83735; 84100; 85025; 85610; 85730; 86850; 86900; 86901; 87040; 87070; 87086; 87205; 87338; 87811; 93005; 94640; 96374; 96375; C1751; C9113; J0360; J1100; J1170; J1200; J1450; J1650; J2270; J2370; J2405; J2543; J2704; J3010; J3370-JW; J3480; J3490; J7042; J7050; J7120; J7620; P9016; P9045; Q0163; Q9963; Q9967; U0002